=== PATIENT | male | born 1960 | race Caucasian/White ===

== ENCOUNTER 2016-06-09 05:52 | Observation (INO) | payer MEDICAID ==
[2016-06-09] MEDS ORDERED: ASPIRIN EC 325 MG TAB PO ONE ×2 (06:56→07:10)
[2016-06-09] MEDS ORDERED: DIAZEPAM 5 MG TAB ONE (06:56)
[2016-06-09] MEDS ORDERED: diphenhydrAMINE 25 MG CAP PO ONE ×2 (06:56→07:10)
[2016-06-09] MEDS ORDERED: FAMOTIDINE 20 MG TAB ONE (06:56)
[2016-06-09 07:06] LABS: % IMMATURE GRANULYOCYTES 0.3 % (0.0-1.1); ABSOLUTE IMMATURE GRANULOCYTES 0.03 10^3/uL (0.00-0.10); ADD DIFF? NO; ADD MORPH? NO; ADD SCAN? NO; ATYPICAL LYMPHOCYTE FLAG 0 (0-99); FRAGMENT RBC FLAG 0 (0-99); HEMATOCRIT 49.8 % (40.0-51.0); HEMOGLOBIN 17.7 g/dL (13.7-17.5); LEFT SHIFT FLG 0 (0-99); LIPEMIA HEMOLYSIS FLAG 90 (0-99); MEAN CELL HEMOGLOBIN 32.2 pg (27.9-34.1); MEAN CELL HEMOGLOBIN CONCENTR. 35.5 g/dL (32.4-36.7); MEAN CELL VOLUME 90.7 fL (81.5-99.8); MEAN PLATELET VOLUME 9.7 fL (8.7-11.7); PLATELET CLUMPS FLAG 0 (0-99); PLATELET COUNT 244 10^3/uL (150-400); RED BLOOD CELL COUNT 5.49 10^6/uL (4.40-6.38); RED CELL DISTRIBUTION WIDTH 12.2 % (11.5-15.2)
[2016-06-09] MEDS ORDERED: DIAZEPAM 5 MG TAB PO ONE (07:10)
[2016-06-09] MEDS ORDERED: FAMOTIDINE 20 MG TAB PO ONE (07:10)
[2016-06-09] MEDS ORDERED: NS 1,000 ML IV ONE (07:10)
[2016-06-09 07:13] LABS: ANION GAP 10 mEq/L (8-16); CALCIUM 9.7 mg/dL (8.5-10.4); CARBON DIOXIDE 24 mEq/l (22-31); CHLORIDE 107 mEq/L (97-110); CHOLESTEROL 274 mg/dL (140-220); CHOLESTEROL/HDL RATIO 5.96 RATIO (1.00-4.97); CREATININE 0.9 mg/dL (0.7-1.3); GLOMERULAR FILTRATION RATE > 60; GLUCOSE 90 mg/dL (70-100); HIGH DENSITY LIPOPROTEIN 46 mg/dL (40-65); INR 1.03 (0.83-1.16); LDL/HDL RATIO 4.11 RATIO (1.00-3.64); LOW DENSITY LIPOPROTEIN 189 mg/dL (80-100); MAGNESIUM 1.9 mg/dL (1.6-2.3); NON-HIGH DENSITY LIPOPROTEIN 228 mg/dL (90-129); POTASSIUM 4.3 mEq/L (3.5-5.2); PROTIME(PATIENT) 13.4 SEC (12.0-15.0); SODIUM 141 mEq/L (134-144); TRIGLYCERIDE 198 mg/dL (40-150); VERY LOW DENSITY LIPOPROTEINS 39 mg/dL (8-25)
[2016-06-09] MEDS ORDERED: LIDOCAINE 1% 30 ML SDV ONE (07:58)
[2016-06-09] MEDS ORDERED: HEPARIN 10,000 UNIT/10 ML MDV ONE (07:58)
[2016-06-09] MEDS ORDERED: fentaNYL 100 MCG/2 ML INJ ONE ×2 (07:58→08:54)
[2016-06-09] MEDS ORDERED: VERAPAMIL 5 MG/2 ML VIAL ONE (07:58)
[2016-06-09] MEDS ORDERED: MIDAZOLAM 2 MG/2 ML VIAL ONE ×3 (07:58→10:16)
[2016-06-09] MEDS ORDERED: IOPAMIDOL (ISOVUE 370) 100 ML BTL IV ONE ×4 (07:59→10:38)
[2016-06-09] MEDS ORDERED: BIVALIRUDIN 250 MG/5 ML VIAL IV ONE ×2 (08:43→10:28)
[2016-06-09] MEDS ORDERED: NITROGLYCERIN 1,500 MCG/15 ML VIAL MISC ONE ×2 (08:43→10:23)
[2016-06-09] MEDS ORDERED: ADENOSINE 90 MG/30 ML VIAL IV ONE (09:37)
[2016-06-09] MEDS ORDERED: ATROPINE SULFATE 1 MG/10 ML SYR ONE ×2 (10:01→13:10)
[2016-06-09] MEDS ORDERED: NITROGLYCERIN/D5W/250 ML BOTTLE IV ONE (10:07)
[2016-06-09] MEDS ORDERED: DOPamine/DEXTROSE/250 ML BAG IV ONE (10:11)
[2016-06-09] MEDS ORDERED: ONDANSETRON 4 MG/2 ML VIAL ONE (10:36)
[2016-06-09] MEDS ORDERED: CLOPIDOGREL BISULFATE 75 MG TAB ONE (10:39)
[2016-06-09] MEDS ORDERED: CLOPIDOGREL BISULFATE 75 MG TAB PO ONE (11:10)
[2016-06-09] MEDS ORDERED: ATROPINE SULFATE 1 MG/10 ML SYR IVP PRN (11:10)
[2016-06-09] MEDS ORDERED: LORazepam 2 MG/ML INJ IVP PRN (11:10)
[2016-06-09] MEDS ORDERED: OXYCODONE/APAP 5/325 TAB PO PRN (11:10)
[2016-06-09] MEDS ORDERED: NITROGLYCERIN 0.4 MG BTL SL PRN (11:10)
[2016-06-09] MEDS ORDERED: ONDANSETRON 4 MG/2 ML VIAL IVP PRN (11:10)
[2016-06-09] MEDS ORDERED: TEMAZEPAM 15 MG CAP PO PRN (11:10)
[2016-06-09] MEDS ORDERED: HYDROCODONE/APAP 5/325 TAB PO PRN (11:10)
--- NOTE | 2016-06-09 11:22 | CPEKG ---
Heart Rate: 62 RR Interval: 968 P-R Interval: 200 QRSD Interval: 100 QT Interval: 468 QTC Interval: 476 P [place]: 53 QRS [place]: 63 T Wave [place]: 33 EKG Severity - BORDERLINE ECG - EKG Impression: SINUS RHYTHM EKG Impression: BORDERLINE PROLONGED QT INTERVAL Electronically Signed By: Jordan Veliz 10-Jun-2016 08:44:45
--- NOTE | 2016-06-09 11:54 | CPIP ---
[f rep st] INVASIVE CARDIAC PROCEDURE DATE OF PROCEDURE: 06/09/2016 PROCEDURE: 1. Coronary angiography. 2. Fractional flow reserve of left anterior descending coronary artery. 3. Stenting of right coronary artery with Synergy drug-eluting stents. INDICATION: 1. Class III angina despite medical therapy with aspirin, lisinopril and nitroglycerin. 2. High risk abnormal nuclear stress test. ACCESS: Patient was prepped and draped in sterile fashion. 1% lidocaine was used to anesthetize th e right inguinal region. A 6-[place] introducer sheath was placed selectively into the right common femoral artery via modified Seldinger technique. CORONARY ANGIOGRAPHY: A 6-[place] JL4 was advanced to the left main coronary artery and images obtai salbador. The left main coronary artery trifurcated into an LAD, ramus, and circumflex coronary arteries . The left main coronary artery appeared normal. The left anterior descending coronary artery is d iffusely diseased. In the proximal segment, there was a discreet 40% to 50% stenosis present, and i n the mid vessel there is a discrete 40% stenosis present, and in the distal vessel there was a disc reet 50% to 70% stenosis present. The first diagonal artery is a moderate-sized vessel. The first diagonal artery appeared to have an ostial 50% to 70% stenosis present. The ramus coronary artery w as a large vessel. The ramus coronary artery had an ostia of 30% stenosis present. The circumflex coronary artery, and its complement of OM branches appeared normal. A 6-[place] JR4 was advanced to the right coronary artery and images obtained. The right coronary artery was diffusely diseased. I n the mid vessel there is a single discrete 75% stenosis present, and in the distal vessel there is a single discrete 99% stenosis present. LEFT VENTRICULOGRAPHY: Left ventriculography was not performed in an effort to spare contrast. FFR OF THE LEFT ANTERIOR DESCENDING CORONARY ARTERY: A 6-[place] JL 5.0 was advanced to the left elena n coronary artery and images obtained. Angiography confirmed the presence of intermediate to high-g rade disease throughout the left anterior descending coronary artery. The FFR wire was placed in th e distal vessel after the distal most lesion and FFR obtained after IV adenosine infusion. The FFR was 0.84 to 0.85 in the distal vessel indicating no flow limitation. PERCUTANEOUS CORONARY INTERVENTION OF THE RIGHT CORONARY ARTERY: A 6-[place] JL 3.5 was advanced to the right coronary artery and it was obtained. The angiography confirmed the presence of high-grade disease, involving the mid and distal vessel. A loose wire was placed in the distal vessel, and po sition verified by angiography. A 2.5 x 15 Emerge balloon was used to pre-dilate the distal lesion. Followup angiography demonstrated significant residual stenosis. A 2.5 x 24 Synergy drug-eluting stent was placed in the distal vessel and deployed. Followup angiography demonstrated TERE-3 flow. No residual stenosis. A 3.0 x 24 Synergy drug-eluting stent was then placed in the mid vessel and deployed. Followup angiography demonstrated TERE-3 flow. No residual stenosis. However, in the di stal portion of the vessel, prior to the previously placed stent, there appeared to be an intermedia qp-ik-kxoh-grade lesion. It was decided to place a 2.75 x 20 Synergy drug-eluting stent in the dist al vessel and telescoped into the distal-most stent and deployed. Followup angiography demonstrated TERE-3 flow. No residual stenosis. COMPLICATIONS: None. CONCLUSIONS: 1. 2-vessel coronary artery disease. 2. No evidence of flow limitation in the left anterior descending coronary artery by FFR. 3. Status post successful percutaneous coronary intervention of the right coronary artery using Syn ergy drug-eluting stents. /[id number]/MODL
--- NOTE | 2016-06-09 13:20 | CPEKG ---
Heart Rate: 60 RR Interval: 1000 P-R Interval: 172 QRSD Interval: 100 QT Interval: 460 QTC Interval: 460 P [place]: 33 QRS [place]: 47 T Wave [place]: 35 EKG Severity - NORMAL ECG - EKG Impression: SINUS RHYTHM Electronically Signed By: Jordan Veliz 10-Jun-2016 08:44:41
[2016-06-10 05:11] LABS: % IMMATURE GRANULYOCYTES 0.5 % (0.0-1.1); ABSOLUTE IMMATURE GRANULOCYTES 0.06 10^3/uL (0.00-0.10); ADD DIFF? NO; ADD MORPH? NO; ADD SCAN? NO; ATYPICAL LYMPHOCYTE FLAG 0 (0-99); FRAGMENT RBC FLAG 0 (0-99); HEMATOCRIT 45.4 % (40.0-51.0); HEMOGLOBIN 15.5 g/dL (13.7-17.5); LEFT SHIFT FLG 0 (0-99); LIPEMIA HEMOLYSIS FLAG 90 (0-99); MEAN CELL HEMOGLOBIN CONCENTR. 34.1 g/dL (32.4-36.7); MEAN CELL VOLUME 93.6 fL (81.5-99.8); MEAN PLATELET VOLUME 10.1 fL (8.7-11.7); PLATELET CLUMPS FLAG 0 (0-99); PLATELET COUNT 225 10^3/uL (150-400); RED BLOOD CELL COUNT 4.85 10^6/uL (4.40-6.38); RED CELL DISTRIBUTION WIDTH 12.5 % (11.5-15.2)
[2016-06-10 05:19] LABS: ANION GAP 7 mEq/L (8-16); ASPARTATE AMINOTRANSFERASE 25 IU/L (17-59); CALCIUM 9.4 mg/dL (8.5-10.4); CARBON DIOXIDE 26 mEq/l (22-31); CHLORIDE 106 mEq/L (97-110); CREATININE 1.1 mg/dL (0.7-1.3); GLOMERULAR FILTRATION RATE > 60; GLUCOSE 90 mg/dL (70-100); LACTATE DEHYDROGENASE 439 IU/L (313-618); SODIUM 139 mEq/L (134-144)
[2016-06-10] MEDS ORDERED: CLOPIDOGREL BISULFATE 75 MG TAB PO SCH (09:00)
[2016-06-10] MEDS ORDERED: LISINOPRIL/HCTZ 20/12.5MG 1 EA TAB PO SCH (09:00)
[2016-06-10] MEDS ORDERED: CHOLECALCIFEROL VIT D3 1,000 UNITS TAB PO SCH (09:00)
[2016-06-10] MEDS ORDERED: ASPIRIN EC 325 MG TAB PO SCH (09:00)
--- NOTE | 2016-06-10 09:30 | CPEKG ---
Heart Rate: 65 RR Interval: 923 P-R Interval: 172 QRSD Interval: 96 QT Interval: 392 QTC Interval: 408 P [place]: 53 QRS [place]: 43 T Wave [place]: 30 EKG Severity - NORMAL ECG - EKG Impression: SINUS RHYTHM Electronically Signed By: Felix Armstrong 10-Jun-2016 12:17:58
[2016-06-10 11:58] VITALS: BP 170/95; PULSE 60; RESP 20; TEMP 97.6; O2SAT 98
--- NOTE | 2016-06-10 12:48 | GDS ---
[f rep st] DISCHARGE SUMMARY DISCHARGE DIAGNOSES: 1. Coronary artery disease. The patient presented with symptoms of class 2-3 angina. He had a nuc lear stress test performed, demonstrating a large area of inferior ischemia. He was taken to the [facility] catheterization laboratory on 06/09/2016 and found to have 2-vessel coronary artery disease in volving his left anterior descending coronary artery and right coronary artery. FFR was performed o n the left anterior descending coronary artery, indicating no evidence of flow limitation. The zelda ent was subsequently treated with percutaneous coronary intervention of the right coronary artery us ing Synergy drug-eluting stents. The patient will be continued on aspirin, Brilinta, Coreg, lisinop ril, and rosuvastatin for medical management. 2. Hypertension. The patient has a long history of hypertension. His blood pressure has been prev iously well controlled on lisinopril and hydrochlorothiazide. These medications will be continued. In addition, Coreg will be added for improved blood pressure control and cardiovascular risk reduct ion. 3. Hyperlipidemia. The patient has a history of hyperlipidemia. He is unable to tolerate Lipitor secondary to LFT abnormalities. 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 The patient will be started on rosuvastatin 20 mg daily. He will need FLP and LFTs in a 3-month period of time to evaluate therapy. SUMMARY OF PRESENTATION AND COURSE: The patient is a 55-year-old gentleman who presented in the out patient setting with symptoms of class 2-3 angina. He had a nuclear stress test performed for risk stratification, demonstrating a large area of inferior ischemia. He was admitted to the hospital on 06/09/2015 for cardiac catheterization. Coronary angiography was notable for 2-vessel coronary art adrian disease. The left anterior descending coronary artery was evaluated with FFR. The FFR indicate d no flow limitation. The patient was ultimately treated with percutaneous coronary intervention of his right coronary artery. Postprocedural course was uncomplicated. At the time of discharge, he was ambulating without difficulty. He had no symptoms of angina or congestive heart failure, no sig nificant arrhythmias on telemetry monitoring, and no significant groin complications. PHYSICAL EXAMINATION: GENERAL: At the time of discharge, patient is resting comfortably in bed. V ITALS: Temperature afebrile. Pulse is 63. Blood pressure 131/80. Respiratory rate 18, SaO2 92% o n room air. LUNGS: Clear to auscultation bilaterally. CARDIOVASCULAR: Regular rate and rhythm, S 1, S2. No murmurs, rubs, or gallops appreciated. ABDOMEN: Soft, nontender. Normoactive bowel julita nds. EXTREMITIES: No clubbing, cyanosis, or edema. 2+ dorsalis pedis pulse and posterior tibial p ulse on the right. No evidence of hematoma or ecchymosis. LABORATORY: At the time of discharge, sodium 139, potassium 5.0, chloride 106, CO2 26, BUN 17, crea tinine 1.1. White blood cell count 12.55, hemoglobin 15.5, hematocrit 45.4, platelet count 225. DISCHARGE MEDICATIONS: Please see medicine reconciliation form. ARRANGEMENTS FOR FOLLOWUP CARE: 1. Patient should follow up with Sofiya Delvalle or Dr. Panda at [facility] in approximately 1-2 weeks' period of time. 2. Patient was instructed to return to the ER for recurrent symptoms of angina or groin complicatio ns as outlined at the time of discharge. /[id number]/MODL
[2016-06-10] MEDS ORDERED: CARVEDILOL 3.125 MG TAB PO SCH (18:00)
[2016-06-11] MEDS ORDERED: ASPIRIN 81 MG CHEWABLE TAB PO SCH (09:00)
[2016-06-11] MEDS ORDERED: ROSUVASTATIN CALCIUM 20 MG TAB PO SCH (09:00)
[2016-06-11] MEDS ORDERED: TICAGRELOR 90 MG TAB PO SCH (09:00)
[2016-06-11] MEDS ORDERED: FLUoxetine 20 MG CAP PO SCH (09:00)
== END 2016-06-10 15:06 | disposition home or self-care (01) ==
LOC: FCATH 05:52 → F2W 10:00
PROVIDERS: ADMIT Internal Medicine Cardiovascular Disease; ATTEND Internal Medicine Cardiovascular Disease
PROC: B2151ZZ Fluoroscopy of Left Heart using Low Osmolar Contrast (ICD-10-PCS; principal; 2016-06-09)
PROC: 027036Z Dilation of Coronary Artery, One Artery with Three Drug-eluting Intraluminal Devices, Percutaneous Approach (ICD-10-PCS; principal; 2016-06-09)
PROC: B240ZZ3 Ultrasonography of Single Coronary Artery, Intravascular (ICD-10-PCS; principal; 2016-06-09)
PROC: 4A023N7 Measurement of Cardiac Sampling and Pressure, Left Heart, Percutaneous Approach (ICD-10-PCS; principal; 2016-06-09)
PROC: B2111ZZ Fluoroscopy of Multiple Coronary Arteries using Low Osmolar Contrast (ICD-10-PCS; principal; 2016-06-09)
DX: I25.119 Atherosclerotic heart disease of native coronary artery with unspecified angina pectoris (principal); I10 Essential (primary) hypertension; E78.9 Disorder of lipoprotein metabolism, unspecified
CPT/HCPCS: 92928; 93005; 93454; 93571; C1725; C1769; C1887; C1874; C9600; J0153; J0461; J0583; J1265; J1644; J2250; J2405; J3010; Q9967

== ENCOUNTER 2016-06-15 10:04 | Emergency (ER) | payer MEDICAID ==
[2016-06-15 10:17] VITALS: TEMP 98.4
--- NOTE | 2016-06-15 10:31 | EDPHY ---
H & P Time Seen by Provider: 06/15/16 10:25 HPI/ROS: Chief complaint. Post heart catheterization groin swelling HPI. Patient is a 55-year-old male had a heart catheterization on June 09 with stents placed. Over the last 2 days he has had increased pain swelling to the right groin and now is quite tender to the touch. It hurts when he bears down to go to the bathroom. No chest pain or fever. Pain swelling and bruising goes into the right testicle as well as the shaft of the penis ROS Constitutional. no fever/chills, no weakness Eyes. no problems with vision ENT. no sore throat, no nasal drainage Cardiovascular. no chest pain Respiratory. no shortness of breath, no cough Abdominal. no abdominal pain, no nausea/vomiting, no diarrhea . no problems urinating MS. Pain, swelling, bruising to right groin Skin. no rash Lymph. no swollen glands Neuro. no headache, no dizziness, no difficulty walking or with speech Past Medical/Surgical History: Coronary artery disease, hypertension, dyslipidemia Social History: , nonsmoker, no alcohol Smoking Status: Former smoker Physical Exam: General Appearance: Alert pleasant well-developed male mild distress vital signs are stable Eyes: Pupils equal and round no pallor or injection. ENT, Mouth: Mucous membranes are moist. Respiratory: There are no retractions, lungs are clear to auscultation. Cardiovascular: Regular rate and rhythm. Gastrointestinal: Abdomen is soft and nontender, no masses, bowel sounds normal. Neurological: Awake and alert, sensory and motor exams grossly normal. Skin: Warm and dry, no rashes. Musculoskeletal: Neck is supple nontender. Extremities bruising and swelling with tenderness to the right groin area overlying the femoral artery. There is bruising to the shaft of the penis and into the right scrotal area. No evidence for infection however Psychiatric: Patient is oriented X 3, there is no agitation. Constitutional: Initial Vital Signs Temperature (C) 36.9 C 06/15/16 10:14 Heart Rate 81 06/15/16 10:14 Respiratory Rate 18 06/15/16 10:14 Blood Pressure 115/79 06/15/16 10:14 O2 Sat (%) 96 06/15/16 10:14 O2 Delivery Mode Room Air Allergies/Adverse Reactions: No Known Allergies Allergy (Unverified 06/09/16 07:09) Home Medications: Medication Instructions Recorded Aspirin EC [Aspirin EC 81 mg (*)] 81 mg PO DAILY 06/09/16 Cholecalciferol Vit D3 [Vitamin D3 2,000 units PO DAILY 06/09/16 (*)] FLUoxetine [Prozac 20 MG (*)] 20 mg PO DAILY 06/09/16 Lisinopril/Hctz 20/12.5MG 1 ea PO DAILY 06/09/16 [Zestoretic/Prinzide 20/12.5MG (*)] Aspirin [Aspirin 81mg (*)] 81 mg PO DAILY #0 tab.chew 06/10/16 Carvedilol [Coreg (*)] 3.125 mg PO BIDMEAL #60 tab 06/10/16 FLUoxetine [Prozac 20 MG (*)] 20 mg PO DAILY #0 cap 06/10/16 Rosuvastatin Calcium [Crestor 20mg 20 mg PO DAILY #30 tab 06/10/16 (*)] Ticagrelor [Brilinta] 90 mg PO BID #60 tab 06/10/16 Medical Decision Making - Diagnostics Imaging: Ultrasound interpreted by me and discussed with Dr. Rashid shows no evidence of pseudoaneurysm. His interpretation is adenopathy verses thrombosed pseudoaneurysm and likely this is adenopathy. Could represent hematoma ED Course/Re-evaluation: Re-evaluation at 12:10 p.m.. Patient is stable. The patient, his , and I discussed imaging study results, treatment plan, criteria for return and importance of follow-up and further evaluation. They expressed understanding and agreement. I consulted and discussed case with Cardiology. They recommend warm compresses and continuing going groin precautions of no lifting over 10 lb. The patient already has an appointment with them next Wednesday and the patient will be encouraged to keep this. Departure - Departure Disposition: Home, Routine, Self-Care Clinical Impression: Post heart catheterization groin hematom Condition: Good Instructions: Hematoma (ED) Additional Instructions: I discussed your care with the [facility] shift lead. They recommend warm compresses 3 times daily. Easy activity and no lifting over 10 lb. Continue groin per caution instructions. You have an appointment with them next Wednesday and they encouraged to keep the appointment. Return sooner for worsening pain, swelling, or fever. Referrals: Moo Spear MD [Primary Care Provider] - As per Instructions
[2016-06-15 12:24] VITALS: BP 134/87; PULSE 63; RESP 16; O2SAT 94
== END 2016-06-15 12:24 | disposition home or self-care (01) ==
DX: I97.610 Postprocedural hemorrhage of a circulatory system organ or structure following a cardiac catheterization (principal); I10 Essential (primary) hypertension; I24.9 Acute ischemic heart disease, unspecified; Z87.891 Personal history of nicotine dependence; Z79.82 Long term (current) use of aspirin

== ENCOUNTER → 2016-06-22 | Outpatient (CLI) | payer MEDICAID | LOC: FIMAGING 15:35 | PROVIDERS: ATTEND Nurse Practitioner Adult Health | DX: R19.03 Right lower quadrant abdominal swelling, mass and lump (principal); Z98.890 Other specified postprocedural states ==

== ENCOUNTER 2017-06-13 13:16 | Emergency (ER) | payer MEDICAID ==
[2017-06-13 13:22] VITALS: TEMP 98.1
--- NOTE | 2017-06-13 13:28 | CPEKG ---
Heart Rate: 55 RR Interval: 1091 P-R Interval: 176 QRSD Interval: 98 QT Interval: 436 QTC Interval: 417 P [place]: 76 QRS [place]: 73 T Wave [place]: 65 EKG Severity - NORMAL ECG - EKG Impression: SINUS RHYTHM Electronically Signed By: Lino Abad 13-Jun-2017 20:31:59
[2017-06-13] MEDS ORDERED: ASPIRIN 81 MG CHEWABLE TAB PO ONE (13:45)
[2017-06-13 13:50] LABS: PLATELET COUNT 261 10^3/uL (150-400)
[2017-06-13] MEDS: NITROGLYCERIN 0.4 MG BTL SL PRN ×3 (13:53→14:08)
--- NOTE | 2017-06-13 14:54 | EDPHY ---
H & P Stated Complaint: stopped brillinta last week cp/htn for 3 days Time Seen by Provider: 06/13/17 13:27 HPI/ROS: CHIEF COMPLAINT: High blood pressure HISTORY OF PRESENT ILLNESS: This is a 56-year-old male with history of coronary artery disease status post stenting, hypertension, and hyperlipidemia. 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 When he was in the office his blood pressure was 100/60. He had a febrile illness last week on , Wednesday, and Wednesday with fever, sore throat, and occasional coughing fits. He rested in bed during this time. Yesterday, the 3rd day of his illness, he felt better except that he was having left-sided chest pain. He has had left upper chest pain constantly for the past 2 days. He has had some associated dizziness. There has been no radiation of the pain. He is not short of breath. He otherwise feels fine. Today he checked his blood pressure and it was elevated. He consulted his physician and was advised to come to the emergency department. He is here primarily out of concern about his blood pressure, not because he is experiencing chest pain. REVIEW OF SYSTEMS: A ten point review of systems was performed and is negative with the exception of the items mentioned in the HPI. Past medical history: 1. Coronary artery disease status post stenting 2. Hypertension 3. Hyperlipidemia Past surgical history: Multiple orthopedic surgeries Social history: He lives with his in [place]. He does not use tobacco products. He is self-employed. General Appearance: Alert. Vital signs reviewed. Blood pressure at triage was 145/105. Eyes: Pupils equal and round, no conjunctival injection, no discharge. Anicteric. ENT, Mouth: Mucous membranes are moist, no oropharyngeal erythema or edema. Neck: No lymphadenopathy, supple. Respiratory: Lungs are clear to auscultation; no wheezes, rales, or rhonchi. Cardiovascular: Regular rate and rhythm; no murmur, rub, or gallop. Gastrointestinal: Abdomen is soft and nontender, no masses or organomegaly, bowel sounds normal. Skin: Warm and dry, no rashes on exposed skin, normal color. Back: Nontender to palpation over the thoracolumbar spine. No CVAT. Extremities: No lower extremity edema, no calf tenderness or swelling. Neurological: Alert and oriented. Moving all four extremities easily and equally. SAÚL. EOMI. Facial expression symmetric. Tongue midline. Psychiatric: Normal affect. - Personal History Current Tetanus/Diphtheria Vaccine: Yes - Medical/Surgical History Hx Asthma: No Hx Chronic Respiratory Disease: No Hx Diabetes: No Hx Cardiac Disease: Yes Hx Renal Disease: No Hx Cirrhosis: No Hx Alcoholism: No Hx HIV/AIDS: No Hx Splenectomy or Spleen Trauma: No Other PMH: 50 FX; BACK AND PLATES NECK; HYPERLIPIDEMIA,cardiac cath procedure - Social History Smoking Status: Former smoker Constitutional: Initial Vital Signs Temperature (C) 36.7 C 06/13/17 13:20 Heart Rate 60 06/13/17 13:20 Respiratory Rate 17 06/13/17 13:20 Blood Pressure 145/105 H 06/13/17 13:20 O2 Sat (%) 98 06/13/17 13:20 O2 Delivery Mode Room Air Allergies/Adverse Reactions: No Known Allergies Allergy (Verified 06/13/17 13:19) Home Medications: Medication Instructions Recorded Aspirin [Aspirin 81mg (*)] 81 mg PO DAILY 06/14/17 Carvedilol [Coreg (*)] 3.125 mg PO BIDMEAL 06/14/17 Cholecalciferol Vit D3 [Vitamin D3 2,000 units PO DAILY 06/14/17 2000 units tab (OTC)] FLUoxetine [Prozac 20 MG (*)] 20 mg PO DAILY 06/14/17 Lisinopril/Hctz 20/12.5MG 1 ea PO DAILY 06/14/17 [Zestoretic/Prinzide 20/12.5MG (*)] Nitroglycerin [Nitrostat 0.4 mg 0.4 mg SL Q5M PRN 06/14/17 (*)] Rosuvastatin Calcium [Crestor 10mg 5 mg PO HS 06/14/17 (RX)] Medical Decision Making - Diagnostics EKG Interpretation: 12 lead EKG is interpreted in Trace master View by emergency department physician. Sinus rhythm with a rate of 55. No acute ischemic changes. There is some baseline artifact noted on the tracing. ED Course/Re-evaluation: Patient received 3 sublingual nitroglycerin. He had a good response in terms of blood pressure but no significant change in his chest pain. He was re- evaluated at 2:35 p.m.. CBC, chemistries, troponin reviewed in all normal with the exception of CO2 of 20. Chest x-ray shows no acute pulmonary disease. He continued to experience left upper chest pain during his stay in the emergency department. His blood pressure improved and was 129/81 at discharge. However, I was concerned about the persistent chest pain. Hospitalization was offered for serial troponins and further evaluation as needed. Given that he has had this pain for the past 2 days it seems unlikely that his pain represents an acute coronary syndrome with a normal troponin and normal EKG. However he does have a history of coronary artery disease, with hypertension and hyperlipidemia. His pain is not pleuritic, he has not tachycardic or tachypneic and I do not think that he has a pulmonary embolus. Using the Wells score for PE he is low risk. I do not recommend further testing for PE at this time. He denied discussed hospitalization at some length. He understands that the cause of his chest pain has not been discovered. He is willing to sign a form stating that he is leaving against medical advice. He he understands that he can return at any time. He is advised to follow up with his primary care provider and his dry yard worker. Differential Diagnosis: Chest pain including but not limited to myocardial ischemia, pulmonary embolus, chest wall pain, pleural inflammation and pulmonary infectious causes. - Data Points Laboratory Results: Laboratory Results 06/13/17 13:30 06/13/17 13:30 Medications Given: Discontinued Medications Aspirin (Aspirin) 243 mg PO EDNOW ONE Stop: 06/13/17 13:46 Last Admin: 06/13/17 13:53 Dose: 243 mg Nitroglycerin (Nitrostat) 0.4 mg SL Q5M PRN PRN Reason: Chest Pain Last Admin: 06/13/17 14:08 Dose: 0.4 mg Departure - Departure Disposition: Against Medical Advice Clinical Impression: Chest pain Qualifiers: Chest pain type: other chest pain Qualified Code(s): R07.89 - Other chest pain ; R07.8 - Other chest pain Hypertension Qualifiers: Hypertension type: essential hypertension Qualified Code(s): I10 - Essential ( primary) hypertension Condition: Good Instructions: Chest Pain (ED), Hypertension (ED) Additional Instructions: Continue your prescribed medications. I recommend that you follow up with Dr. Panda. You should call the office tomorrow to arrange follow-up appointment. Make sure the office staff knows that you were seen and evaluated in the emergency department for high blood pressure and chest pain. Referrals: Moo Spear MD [Primary Care Provider] - As per Instructions Jordan Panda MD [Medical Doctor] - As per Instructions
[2017-06-13 16:22] VITALS: BP 129/81; PULSE 56; RESP 15; O2SAT 97
== END 2017-06-13 16:25 | disposition left against medical advice (07) ==
DX: I10 Essential (primary) hypertension (principal); R07.89 Other chest pain; I25.10 Atherosclerotic heart disease of native coronary artery without angina pectoris; Z79.82 Long term (current) use of aspirin; Z87.891 Personal history of nicotine dependence; Z95.5 Presence of coronary angioplasty implant and graft

== ENCOUNTER 2017-06-14 14:44 | Inpatient (IN) | payer MEDICAID ==
--- NOTE | 2017-06-14 15:09 | CPEKG ---
Heart Rate: 57 RR Interval: 1053 P-R Interval: 176 QRSD Interval: 100 QT Interval: 428 QTC Interval: 417 P [place]: 60 QRS [place]: 76 T Wave [place]: 60 EKG Severity - NORMAL ECG - EKG Impression: SINUS RHYTHM Electronically Signed By: Akash Piedra 16-Jun-2017 07:06:02
--- NOTE | 2017-06-14 15:36 | EDPHY ---
H & P Stated Complaint: CP htn x 5 days--sent from [facility] for card cath Time Seen by Provider: 06/14/17 15:34 - Personal History Current Tetanus/Diphtheria Vaccine: Unsure Current Tetanus Diphtheria and Acellular Pertussis (TDAP): Unsure - Medical/Surgical History Hx Asthma: No Hx Chronic Respiratory Disease: No Hx Diabetes: No Hx Cardiac Disease: Yes Hx Renal Disease: No Hx Cirrhosis: No Hx Alcoholism: No Hx HIV/AIDS: No Hx Splenectomy or Spleen Trauma: No Other PMH: BACK AND PLATES NECK; HYPERLIPIDEMIA,cardiac cath procedure 06/12 - Social History Smoking Status: Former smoker Constitutional: Initial Vital Signs Temperature (C) 37.0 C 06/14/17 14:47 Heart Rate 70 06/14/17 14:47 Respiratory Rate 16 06/14/17 14:47 Blood Pressure 151/89 H 06/14/17 14:47 O2 Sat (%) 98 06/14/17 14:47 O2 Delivery Mode Room Air Allergies/Adverse Reactions: No Known Allergies Allergy (Verified 06/13/17 13:19) Home Medications: Medication Instructions Recorded Aspirin [Aspirin 81mg (*)] 81 mg PO DAILY 06/14/17 Carvedilol [Coreg (*)] 3.125 mg PO BIDMEAL 06/14/17 Cholecalciferol Vit D3 [Vitamin D3 2,000 units PO DAILY 06/14/17 2000 units tab (OTC)] FLUoxetine [Prozac 20 MG (*)] 20 mg PO DAILY 06/14/17 Lisinopril/Hctz 20/12.5MG 1 ea PO DAILY 06/14/17 [Zestoretic/Prinzide 20/12.5MG (*)] Nitroglycerin [Nitrostat 0.4 mg 0.4 mg SL Q5M PRN 06/14/17 (*)] Rosuvastatin Calcium [Crestor 10mg 5 mg PO HS 06/14/17 (RX)] Medical Decision Making - Diagnostics Imaging: I viewed and interpreted images myself ED Course/Re-evaluation: CHIEF COMPLAINT: Chest pain, high blood pressure, dizziness HISTORY OF PRESENT ILLNESS: The patient is a 56 y/o male with a history of 3 stents (May 2016), CAD, and hypertension, complaining of chest pain and dizziness. Last week he stopped taking Brilinta as advised by his party plan sales host/hostess. Yesterday, his party plan sales host/hostess advised him to present to the ED for ongoing chest pain. During his stay in the ED he was administered 3 nitroglycerin and 324mg PO Aspirin, which improved his symptoms. He then left AMA and was advised to see his party plan sales host/hostess. Today he had chest pain and shortness of breath while shoveling his drive way today. Today he saw Dr. Miguelito Martinez, party plan sales host/hostess, and they sent him to the ED today to be admitted for a cardiac angiogram. He is currently having a dull chest pain. No abdominal pain, urinary or bowel complaints, fever, numbness, paresthesias. REVIEW OF SYSTEMS: A 10 point review of systems was performed and is negative with the exception of the elements mentioned in the history of present illness. PHYSICAL EXAM: HR, BP, O2 Sat, RR. Temp noted General Appearance: Alert, well hydrated, appropriate, and non-toxic appearing. Head: Atraumatic without scalp tenderness or obvious injury Eyes: Pupils equal, round, reactive to light and accommodation, EOMI, no trauma , no injection. Ears: Clear bilaterally, no perforation, normal landmarks Nose: Atraumatic, no rhinorrhea, clear. Throat: Mucus membranes moist. Neck: Supple, nontender, no lymphadenopathy. Respiratory: No retractions, no distress, no wheezes, and no accessory muscle use. Lungs are clear to auscultation bilaterally. Cardiovascular: Regular rate and rhythm, no murmurs, rubs, or gallops. Good capillary refill all extremities. Gastrointestinal: Abdomen is soft, nontender, non-distended, no masses, no rebound, no guarding, no peritoneal signs. Musculoskeletal: Normal active ROM of all extremities, atraumatic. Neurological: Alert, appropriate, and interactive. Non-focal neuro. Skin: No rashes, good turgor, no nodules on palpation. Past medical history: Hyperlipidemia, CAD, hypertension Past surgical history: 3 stents (May 2016), back and neck plates Family history: Denies Social history: Lives in [place], DIAGNOSTICS/PROCEDURES/CRITICAL CARE TIME: The 12 lead EKG was interpreted by myself as sinus rhythm with a rate of 57. See hard copy and/or "tracemaster" electronic copy for interpretation. DIFFERENTIAL DIAGNOSIS: The differential diagnosis for the patient's chest pain included but was not limited to myocardial ischemia, pulmonary embolus, chest wall pain, pleural inflammation, and pulmonary infectious causes. MEDICAL DECISION MAKING: The patient is a 56 y/o male with a history of 3 stents (May 2016), CAD, and hypertension presenting with ongoing and exertional chest pain for several days. He left this ED AMA yesterday and was advised to see his party plan sales host/hostess. When he saw his party plan sales host/hostess today, they advised he go to the ED to be admitted for a chest angiogram. Labs and EKG ordered. 324mg PO Aspirin and IV Nitroglycerin administered. 1508: EKG interpreted by myself as sinus rhythm with a rate of 57. 1556: Consulted with BAKARI Richards, party plan sales host/hostess, regarding this patient. He will call the interventionalist for this patient. 1600: Consulted with Dr. Garcia, cardiac education spec, regarding this patient. 1607: Consulted with Dr. Esperanza Garcia, party plan sales host/hostess, regarding this patient. 1639: Consulted with Dr. Garcia, she accepts admission of this patient and will take him to the irrigation laborer. - Data Points Laboratory Results: Laboratory Results 06/14/17 15:11 06/14/17 15:11 06/14/17 06/14/17 06/14/17 15:11 15:11 15:11 WBC 8.99 10^3/uL 10^3/uL (3.80-9.50) RBC 4.89 10^6/uL 10^6/uL (4.40-6.38) Hgb 16.4 g/dL g/dL (13.7-17.5) Hct 46.3 % % (40.0-51.0) MCV 94.7 fL fL (81.5-99.8) MCH 33.5 pg pg (27.9-34.1) MCHC 35.4 g/dL g/dL (32.4-36.7) RDW 12.1 % % (11.5-15.2) Plt Count 259 10^3/uL 10^3/uL (150-400) MPV 9.4 fL fL (8.7-11.7) Neut % (Auto) 63.2 % % (39.3-74.2) Lymph % (Auto) 27.3 % % (15.0-45.0) [place] % (Auto) 5.8 % % (4.5-13.0) Eos % (Auto) 2.7 % % (0.6-7.6) Baso % (Auto) 0.7 % % (0.3-1.7) Nucleat RBC Rel Count 0.0 % % (0.0-0.2) Absolute Neuts (auto) 5.69 10^3/uL 10^3/uL (1.70-6.50) Absolute Lymphs (auto) 2.45 10^3/uL 10^3/uL (1.00-3.00) Absolute Monos (auto) 0.52 10^3/uL 10^3/uL (0.30-0.80) Absolute Eos (auto) 0.24 10^3/uL 10^3/uL (0.03-0.40) Absolute Basos (auto) 0.06 10^3/uL 10^3/uL (0.02-0.10) Absolute Nucleated RBC 0.00 10^3/uL 10^3/uL (0-0.01) Immature Gran % 0.3 % % (0.0-1.1) Immature Gran # 0.03 10^3/uL 10^3/uL (0.00-0.10) PT Pending INR Pending APTT Pending Sodium 137 mEq/L mEq/L (135-145) Potassium 4.3 mEq/L mEq/L (3.5-5.2) Chloride 104 mEq/L mEq/L (97-110) Carbon Dioxide 19 mEq/l L mEq/l (22-31) Anion Gap 14 mEq/L mEq/L (8-16) BUN 15 mg/dL mg/dL (7-23) Creatinine 0.9 mg/dL mg/dL (0.7-1.3) Estimated GFR > 60 Glucose 88 mg/dL mg/dL (70-100) Calcium 9.6 mg/dL mg/dL (8.5-10.4) Magnesium Troponin I < 0.012 ng/mL ng/mL (0.000-0.034) NT-Pro-B Natriuret Pep 53 pg/mL pg/mL (0-125) Triglycerides Cholesterol Cholesterol Risk Factr LDL Cholesterol, Calc LDL Risk Factor VLDL Cholesterol Non-HDL Cholesterol HDL Cholesterol LDL/HDL Ratio Cholesterol/HDL Ratio 06/14/17 15:00 WBC RBC Hgb Hct MCV MCH MCHC RDW Plt Count MPV Neut % (Auto) Lymph % (Auto) [place] % (Auto) Eos % (Auto) Baso % (Auto) Nucleat RBC Rel Count Absolute Neuts (auto) Absolute Lymphs (auto) Absolute Monos (auto) Absolute Eos (auto) Absolute Basos (auto) Absolute Nucleated RBC Immature Gran % Immature Gran # PT INR APTT Sodium Potassium Chloride Carbon Dioxide Anion Gap BUN Creatinine Estimated GFR Glucose Calcium Magnesium Pending Troponin I NT-Pro-B Natriuret Pep Triglycerides Pending Cholesterol Pending Cholesterol Risk Factr Pending LDL Cholesterol, Calc Pending LDL Risk Factor Pending VLDL Cholesterol Pending Non-HDL Cholesterol Pending HDL Cholesterol Pending LDL/HDL Ratio Pending Cholesterol/HDL Ratio Pending Medications Given: Discontinued Medications Aspirin (Aspirin) 324 mg PO EDNOW ONE Stop: 06/14/17 16:10 Last Admin: 06/14/17 16:18 Dose: 324 mg Nitroglycerin/Dextrose (Nitroglycerin 200 Mcg/Ml (Premix)) 250 mls @ 0 mls/hr IV CONT ONE; Titrate PRN Reason: Protocol Stop: 06/14/17 16:10 Last Admin: 06/14/17 16:18 Dose: 250 mls Departure - Departure Disposition: To OP Cath/Surgery Clinical Impression: Chest pain Qualifiers: Chest pain type: other chest pain Qualified Code(s): R07.89 - Other chest pain Condition: Fair Referrals: Moo Spear MD [Primary Care Provider] - As per Instructions Report Scribed for: Lino Abad Report Scribed by: Waleska Morales Date of Report: 06/14/17 Time of Report: 15:36
[2017-06-14 15:54] LABS: PLATELET COUNT 259 10^3/uL (150-400)
[2017-06-14] MEDS ORDERED: ASPIRIN 81 MG CHEWABLE TAB PO ONE (16:09)
[2017-06-14] MEDS ORDERED: NITROGLYCERIN/DEXTROSE 250 ML IV ONE (16:09)
[2017-06-14] MEDS ORDERED: MIDAZOLAM 2 MG/2 ML VIAL ONE (16:42)
[2017-06-14] MEDS ORDERED: LIDOCAINE 1% 300 MG/30 ML SDV ONE (16:42)
[2017-06-14] MEDS ORDERED: fentaNYL 100 MCG/2 ML INJ ONE (16:42)
[2017-06-14] MEDS ORDERED: ONDANSETRON 4 MG/2 ML VIAL ONE (16:43)
[2017-06-14] MEDS ORDERED: IOPAMIDOL (ISOVUE-370) 150 ML BTL IV ONE (16:43)
[2017-06-14] MEDS ORDERED: TEMAZEPAM 15 MG CAP PO PRN ×3 (17:02→18:12)
[2017-06-14] MEDS ORDERED: ASPIRIN EC 325 MG TAB PO ONE ×2 (17:02)
[2017-06-14] MEDS ORDERED: ACETAMINOPHEN 325 MG TAB PO PRN ×2 (17:02→17:18)
[2017-06-14] MEDS ORDERED: NITROGLYCERIN 0.4 MG BTL SL PRN ×4 (17:02→18:12)
[2017-06-14] MEDS ORDERED: diphenhydrAMINE 25 MG CAP PO ONE ×2 (17:02)
[2017-06-14] MEDS ORDERED: FAMOTIDINE 20 MG TAB PO ONE ×2 (17:02)
[2017-06-14] MEDS ORDERED: DIAZEPAM 5 MG TAB PO ONE ×2 (17:02)
[2017-06-14] MEDS ORDERED: NS 1,000 ML IV SCH ×2 (17:15→17:30)
[2017-06-14 17:16] LABS: INR 1.07 (0.83-1.16); PROTIME(PATIENT) 14.1 SEC (12.0-15.0)
--- NOTE | 2017-06-14 17:19 | PDHPUP ---
History & Physical Update H&P update statement: This history and physical update is based on an assessment of the patient which was completed after admission or registration (within 24 hours), but prior to the surgery/procedure. H&P update: H&P reviewed & patient examined, no change in patient's condition since H&P completed (please see Dr. Simental' office note from today)
--- NOTE | 2017-06-14 17:19 | PDPROPOC ---
Sedation Plan of Care Sedation Plan of Care: vital signs stable, mental status noted, patient educated of risks, benefits, alternatives, patient can tolerate sedation ASA Classification: ASA 2 Planned drugs: fentanyl, midazolam Mallampati Score: Class 2 Mallampati Reference Image: Patient passed 3-3-2 rule?: Yes
[2017-06-14] MEDS ORDERED: PRASUGREL HCL 10 MG TAB ONE (17:36)
[2017-06-14] MEDS ORDERED: NITROGLYCERIN 1,500 MCG/15 ML VIAL MISC ONE (17:36)
[2017-06-14] MEDS ORDERED: BIVALIRUDIN 250 MG/5 ML VIAL IV ONE (17:36)
--- NOTE | 2017-06-14 17:48 | PDDXCAT ---
Diagnostic Cath Note - . Date: 06/14/17 Tape Deck Installer: Radha Indication: CCC Class III and IV angina on medical treatment - Procedure Access: right groin Procedure: left heart catheterization, coronary angiography, left ventriculogram - Materials Left Heart Cath size: 6F Left Heart Cath materials: standard multipack (JL4, JR4, pigtail) - Findings-Left Heart Catheterization LM: normal and bifurcates into LAD and LCx LAD: mid 60% lesion; distal 60% lesion; D1 with ostial 60% lesion. Similar to 2017 angiogram LCX: codominant. Large OM. Mild luminal irregularities RCA: mid and distal stents with 70% in stent restenosis. Codominant EDP: 11 LVEF: 65 %. normal wall motion - Findings-Right Heart Catheterization AO: 96/64 Complications: none Estimated blood loss: <50ml Assessment: moderate LAD disease, similar to 2017; significant ISRS of RCA stents Plan: Interventional consult with Dr. Garcia Patient Problems: Problems Problem Status Onset Chest pain Acute
[2017-06-14] MEDS ORDERED: LORazepam 2 MG/ML INJ IVP PRN (18:12)
[2017-06-14] MEDS ORDERED: ONDANSETRON 4 MG/2 ML VIAL IVP PRN (18:12)
[2017-06-14] MEDS ORDERED: OXYCODONE/APAP 5/325 TAB PO PRN (18:12)
[2017-06-14] MEDS ORDERED: ATROPINE SULFATE 1 MG/10 ML SYR IVP PRN (18:12)
--- NOTE | 2017-06-14 18:28 | CPIP ---
[f rep st] INVASIVE CARDIAC PROCEDURE DATE OF PROCEDURE: 06/14/2017 INDICATION FOR PROCEDURE: Unstable angina. PROCEDURE: 1. Right coronary selective angiography. 2. Percutaneous intervention: Distal right coronary artery for severe in-stent restenosis utilizing Xience 2.5 x 15 mm Xience drug-eluting stent and a Xience 3.0 x 15 mm drug-eluting stent for severe in-stent restenosis. 3. Right groin closure with 6-[place] Angio-Seal. HISTORY: Briefly, this is a 56-year-old male with history of prior PCI. The patient has been having unstable anginal-like symptoms for the last 48 hours, came to the emergency room twice. The patient has no EKG changes currently, but has been having chest pain, relieved with the nitroglycerin drip. The patient underwent diagnostic cardiac catheterization by Dr. Esperanza Garcia. Please refer to Dr. Bladimir miller's note for full delineation of underlying coronary anatomy. Briefly, the patient was found to have high-grade in-stent restenosis of his distal RCA stent, as well as mid RCA stent. Given these findi ngs, the patient was consented for PCI. DESCRIPTION OF PROCEDURE: Utilizing the same sheath in the right common femoral artery, patient was started on an Angiomax bolus and drip, as well as given 60 of Effient. Utilizing a JR4 6-[place]isw[place] cath eter, right coronary artery was selectively engaged. A Choice PT wire was placed down the RPDA. We proceeded with primary stenting of these vessels with a 2.5 x 15 mm drug-eluting stent Xience in the distal RCA. The Xience was chosen secondary to the fact the patient had prior Synergy stents placed in these areas. This was deployed at 16 atmospheres across the distal RCA into the RPDA. The RPL, w hich did have an ostial pinch prior to deployment of the stents, still remained patent with an ostial pinch. We then turned our attention to the mid RCA. A Xience 3.0 x 15 mm drug-eluting stent was de ployed successfully at 16 atmospheres. Post deployment, there was excellent TERE-3 flow to the vesse l. There was no evidence of any edge dissection, perforation or any other complication. Wire was re moved. The catheter was removed over an 0.035 wire. Right groin was closed using 6-[place] Angio-Sea l. The patient tolerated the procedure well with no complications. IMPRESSION: Successful percutaneous intervention of high-grade in-stent restenosis of the right devin nary artery with 2 separate Xience drug-eluting stents. PLAN: The patient will be admitted overnight. If clinically stable, anticipate discharge in the nex t 24 hours with a new prescription for Effient 10 mg p.o. daily. /[id number]/MODL
--- NOTE | 2017-06-14 18:40 | CPEKG ---
Heart Rate: 62 RR Interval: 968 P-R Interval: 196 QRSD Interval: 96 QT Interval: 464 QTC Interval: 472 P [place]: 63 QRS [place]: 75 T Wave [place]: 62 EKG Severity - NORMAL ECG - EKG Impression: SINUS RHYTHM Electronically Signed By: Akash Piedra 14-Jun-2017 20:36:19
[2017-06-14] MEDS: ROSUVASTATIN CALCIUM 10 MG TAB PO SCH (22:31)
[2017-06-15 05:08] LABS: PLATELET COUNT 220 10^3/uL (150-400)
[2017-06-15] MEDS: FLUoxetine 20 MG CAP PO SCH (07:56)
[2017-06-15] MEDS: ASPIRIN 81 MG CHEWABLE TAB PO SCH (07:57)
[2017-06-15] MEDS: CHOLECALCIFEROL VIT D3 2,000 UNITS TAB/CAP PO SCH (07:58)
[2017-06-15] MEDS: PRASUGREL HCL 10 MG TAB PO SCH (07:58)
[2017-06-15] MEDS ORDERED: CARVEDILOL 3.125 MG TAB PO SCH (08:00)
--- NOTE | 2017-06-15 08:51 | CPEKG ---
Heart Rate: 67 RR Interval: 896 P-R Interval: 172 QRSD Interval: 96 QT Interval: 412 QTC Interval: 435 P [place]: 64 QRS [place]: 72 T Wave [place]: 58 EKG Severity - NORMAL ECG - EKG Impression: SINUS RHYTHM Electronically Signed By: Akash Piedra 15-Jun-2017 19:15:54
[2017-06-15] MEDS ORDERED: LISINOPRIL/HCTZ 20/12.5MG 1 EA TAB PO SCH (09:00)
--- NOTE | 2017-06-15 10:27 | ASMTCMCOM ---
CM Note CM Note Notes: 06/15/2017 Case Management Note Reviewed chart. Pt admitted for CAD with cath planned. There are no case management d/c needs identified d/t pt age, marital status, employment status and activity levels prior to admission. There are no PT or OT evals ordered at this time. Case Management d/c poc: anticipating independent with follow up as directed. Case Management available if needs change. Date Signed: 06/15/2017 10:26 AM Electronically Signed By:Siena Burciaga RN
[2017-06-15] MEDS: amLODIPine BESYLATE 5 MG TAB PO SCH (12:29)
--- NOTE | 2017-06-15 14:16 | CPEKG ---
Heart Rate: 59 RR Interval: 1017 P-R Interval: 168 QRSD Interval: 98 QT Interval: 428 QTC Interval: 424 P [place]: 60 QRS [place]: 63 T Wave [place]: 53 EKG Severity - NORMAL ECG - EKG Impression: SINUS RHYTHM Electronically Signed By: Akash Piedra 15-Jun-2017 19:15:41
[2017-06-15] MEDS ORDERED: KETOROLAC 30 MG/1 ML SDV IVP ONE (14:46)
[2017-06-15] MEDS ORDERED: CARVEDILOL 3.125 MG TAB PO ONE (14:49)
--- NOTE | 2017-06-15 15:00 | PDCARPN ---
Cardiology Progress Note Chief Complaint: cp/dizziness Assessment/Plan: Assessment: 56-y/o M PMH PCI Synergy stents to RCA 06/09/16 after unstable angina symptoms starting the month prior; htn; dyslipidemia. Since with the onset of viral URI symptoms, he has noted a chest pain and dizziness. BP has been elevated. Was in the ED on 06/13/17 and sent from clinic 06/14/17 for the same. #. cp: found to have ISR of RCA stents 70% s/p PCI Xience stents now back on DAPT (had stopped Brilinta) ongoing cp which may be subendocardial strain given htn cycle enzymes ECG without overt ischemia echo without WMA will treat for possible pleurisy versus musculoskeletal discomfort with Toradol x 1 dose check CRP and ESR #. dizziness: unclear etiology but again possibly viral given recent illness check orthostatics #. htn: BP is quite elevated added Amlodipine and home Lisinopril/HCTZ and Carvedilol doses increased #. DVT ppx: will plan for early ambulation Plan: Due to ongoing pain, dizziness, pt is not stable for discharge. Will admit as inpt. 06/15/17 14:49 Subjective: Ongoing 2-3/10 L sided cp. Previous cp that preceded stents was more linear and across both R and L chest. CP was worsened when bending down to tie his shoes but not worsened with inspiration. Dizziness feels like he is "stoned." No positional component. Time Spent With Patient: >35 minutes Objective: Vital Signs (8 Hrs) Temp Pulse Resp BP Pulse Ox 06/15/17 12:33 97.5 F 69 14 171/101 H 98 06/15/17 11:46 164/109 H 06/15/17 09:59 144/106 H 06/15/17 07:48 97.7 F 64 14 146/104 H 98 Intake/Output (24 Hrs) 06/14/17 06/15/17 06/16/17 05:59 05:59 05:59 Intake Total 1000 200 Output Total 300 Balance 700 200 Intake: Oral (ml) 400 200 IV Intake (ml) 600 Output: Urine (ml) 300 Urinal 300 Other: Weight 79.379 kg Intake Quantity Yes Sufficient Number of Voids Urinal 2 Result Diagrams: 06/15/17 04:30 02/20/18 04:30 Cardiac Labs: Cardiac Lab Results (72 Hrs) 06/15/17 12:28 Troponin I 0.207 H EKG: SR Telemetry: SR Echocardiogram: reviewed with Dr. Garcia- armando and no WMA - Physical Exam Constitutional: healthy appearing, no apparent distress Eyes: PERRL, anicteric sclera Ears, Nose, Mouth, Throat: moist mucous membranes Cardiovascular: regular rate and rhythm, no murmurs Respiratory: clear to auscultate bilat Gastrointestinal: normoactive bowel sounds, no tenderness Skin: no rashes, no abrasions Musculoskeletal: no muscular tenderness Neurologic: AAOx3 Psychiatric: cooperative, interactive ICD10 Worksheet Patient Problems: Problems Problem Status Onset Chest pain Acute Chest pain Acute
--- NOTE | 2017-06-15 15:31 | ECHO ---
[email or web address] [address] [address] Main: [phone] Fax: Transthoracic Echocardiogram Name: ISMAEL JENNINGS MR#: [id number] Study Date: 06/15/2017 Study Time: 12:54 PM Date of : 1960 Age: 56 year(s) Height: 182.9 cm (72 in.) Weight: 79.38 kg (175 lb.) BSA: 2.01 m2 Gender: Male Examination: Echo Indication: Dizziness/status post RCA stents Image Quality: Contrast: Requested by: Susie Wolfe BP: 167 mmHg/110 mmHg Heart Rate: Rhythm: Indication: Dizziness/status post RCA stents Procedure Staff Process Description Writer: Loree Churchill [facility] Reading Physician: Esperanza Garcia Requesting Provider: Susie Wolfe Conclusions: Normal size left ventricle. No LV hypertrophy. Normal global systolic LV function. The ejection fraction is estimated to be 60-65 %. No regional wall motion abnormality. Normal diastolic LV function. Normal size right ventricle. Mild mitral valve regurgitation is present. Measurements: Chambers Valvular Assessment AV/MV Valvular Assessment TV/PV Normal Normal Normal Name Value Range Name Value Range Name Value Range Ao Xuan (2D): 3.7 cm (1.4 cm-2.6 AV meanP mmHg ( - ) cm) MV E Vmax: 0.79 m/s ( - ) IVSd (2D): 0.6 cm (0.6 cm-1.1 MV A Vmax: 0.50 m/s ( - ) cm) MV E/A: 1.58 ( - ) LVDd (2D): 5.1 cm (4.2 cm-5.9 cm) LVDs (2D): 2.9 cm (2.1 cm-4 cm) LVPWd (2D): 0.7 cm (0.6 cm-1 cm) LVEF (MOD4): 74 % (>=55 %) EF Range: 60-65 % Continued Measurements: Chambers Valvular Assessment AV/MV Name Value Name Value Patient: ISMAEL JENNINGS Study Date: 06/15/2017 Page 1 of 2 12:54 PM LADs: 3.2 cm MV E/E' Septal: 8.30 LADs Lon.4 cm MV E/E' Lateral: 7.20 LA Area: 12.7 cm2 Additional Vessels Name Value Ao Ascendin.8 cm Findings: Left Ventricle: Normal size left ventricle. No LV hypertrophy. Normal global systolic LV function. The ejection fraction is estimated to be 60-65 %. No regional wall motion abnormality. Normal diastolic LV function. Right Ventricle: Normal size right ventricle. Left Atrium: The left atrium is normal in size. Right Atrium: The right atrium is normal in size. Mitral Valve: The mitral valve is normal in appearance and function. Mild mitral valve regurgitation is present. Aortic Valve: The aortic valve is normal in appearance and function. Tricuspid Valve: The tricuspid valve is normal in appearance and function. Trivial tricuspid valve regurgitation. Pulmonic Valve: The pulmonic valve is normal in appearance and function. Pulmonary valve not well visualized. Aorta: The aorta is normal. Pericardium: No pericardial effusion. (No Signature Object) Patient: ISMAEL JENNINGS Study Date: 06/15/2017 Page 2 of 2 12:54 PM [id number]
[2017-06-15] MEDS: CARVEDILOL 6.25 MG TAB PO SCH (17:51)
[2017-06-15] MEDS: LISINOPRIL/HCTZ 20/12.5MG 1 EA TAB PO SCH (20:43)
[2017-06-15] MEDS: ROSUVASTATIN CALCIUM 10 MG TAB PO SCH (20:43)
[2017-06-16] MEDS: CHOLECALCIFEROL VIT D3 2,000 UNITS TAB/CAP PO SCH (07:51)
[2017-06-16] MEDS: CARVEDILOL 6.25 MG TAB PO SCH (07:52)
[2017-06-16] MEDS: FLUoxetine 20 MG CAP PO SCH (07:52)
[2017-06-16] MEDS: ASPIRIN 81 MG CHEWABLE TAB PO SCH (07:52)
[2017-06-16] MEDS: LISINOPRIL/HCTZ 20/12.5MG 1 EA TAB PO SCH (07:52)
[2017-06-16] MEDS: amLODIPine BESYLATE 5 MG TAB PO SCH (07:52)
[2017-06-16] MEDS: PRASUGREL HCL 10 MG TAB PO SCH (07:52)
[2017-06-16 08:26] VITALS: O2SAT 98
[2017-06-16] MEDS ORDERED: IOPAMIDOL (ISOVUE 370) 100 ML BTL IV ONE (10:38)
[2017-06-16 12:54] VITALS: BP 139/87; PULSE 66; RESP 22; TEMP 97.9
--- NOTE | 2017-06-16 15:35 | GDS ---
[f rep st] DISCHARGE SUMMARY DISCHARGE DIAGNOSES: 1. Chest pain with in-stent restenosis of right coronary artery stent, status post repeat percutaneo us transluminal coronary angioplasty and stenting with Xience stents. 2. Ongoing chest pain that has now resolved. 3. Dizziness. 4. Hypertension. 5. New diagnosis of deep vein thrombosis involving the common femoral vein. 6. Dyslipidemia. PROCEDURES: 1. 06/14/2017, cardiac catheterization which demonstrates normal left main, LAD with moderate diseas e involving the mid and distal and diagonal 1 with all 60% lesions, unchanged from previous 2017 debbie ogram. Codominant circumflex with a large OM with mild luminal irregularities. RCA with mid and dis jaxon stents with 70% in-stent restenosis. This vessel is codominant. LVEDP of 11 and LVEF of 65. 2. 06/14/2017, PTCA and stenting for in-stent restenosis, status post percutaneous intervention of t he high-grade in-stent restenosis of the RCA using 2 separate Xience stents. 3. 06/15/2017, echocardiogram which shows EF of 60% to 65% with normal global LV systolic function. No regional wall abnormalities. Normal diastolic LV function. Normal right ventricular size. Mild mitral valve regurgitation. 4. 06/16/2017, chest CTA which shows no visible evidence of pulmonary embolus. 5. 06/16/2017, bilateral Doppler which shows nonocclusive thrombus of the right common femoral vein. Waterman cyst versus hematoma less likely in the right popliteal fossa. BRIEF HISTORY: Please see dictated H and P by Dr. Shaun Simental from our office for complete det ails. In brief, the patient is a 56-year-old male, with a known history of CAD, status post PTCA and stenting in 2017. A week ago, he had gotten off his Brilinta. A few days prior to arrival, he had onset of URI symptoms and had developed a cough. With this, he was noting some chest pains. This wo uld persist despite the cough resolving. He came to the emergency department for this, as well as el evated blood pressures at home. He ruled out via enzymes and presented to clinic on Wednesday with kaykay lar complaints. He was therefore taken to the cardiac catheterization laboratory at that time. HOSPITAL COURSE BY PROBLEM: 1. Chest pain. He was found to have in-stent restenosis of RCA stents. A different stent was used with a different drug platform from his previous stents. Previously, he had Synergy stents. Now, he has Xience stents implanted. He will be started on Effient for a total of 1 year. His chest pain w as thought to be possibly related to some subendocardial ischemia based on his hypertension. Postpro cedural cardiac enzyme was elevated at 0.3. EKG was without any ischemic changes. ESR and CRP were within normal limits. A CTA of his chest was negative for PE. A DVT, however, was positive for clot in his right common femoral vein. 2. DVT. As above, he will be started on 3 months of Eliquis. This will put him on triple therapy w ith Eliquis, Effient, and aspirin. 3. Dizziness. This has resolved prior to discharge. 4. Hypertension. Blood pressure was quite elevated through his hospital stay. His home lisinopril with hydrochlorothiazide was titrated to 20/12.5 p.o. twice daily from once daily. His carvedilol wa s increased to 6.25 p.o. twice daily from 3.125 twice daily. Amlodipine was added to his medical reg imen. On discharge, his blood pressure was 139/70. 5. Dyslipidemia. His LDL is controlled on 5 mg of Crestor. His triglycerides were quite elevated. We discussed the possibility of adding fish oil to his medical regimen and he is in agreement with t his plan. PHYSICAL EXAM: VITAL SIGNS: On day of discharge, BP 139/87, heart rate 66, respirations 22, O2 satu ration 98% on room air, temperature 97.9 degrees Fahrenheit. GENERAL: He is a pleasant man in no ap parent distress. HEENT: Head normocephalic, atraumatic. Eyes are PERRL without scleral icterus. H EART: Regular rate and rhythm. LUNGS: Clear. GENITOURINARY: Right groin site without any bruit, edema, or ecchymosis present. LABORATORY DATA: Troponin 0.2, followed by 0.284, followed by 0.112. Triglycerides 376, total steve sterol 169, LDL 49, HDL 45. CBC with WBC 9.33, hemoglobin 14.9, hematocrit 42.8, platelet count 220. ESR 8, CRP 5.2. BMP with sodium 140, potassium 4.4, chloride 105, CO2 24, BUN 14, creatinine 0.9, g lucose 94. RESULTS PENDING: None. DIET: Cardiac diet reviewed with patient. ACTIVITY RESTRICTIONS: Groin precautions were reviewed. DISCHARGE MEDICATIONS: He will be continued on his rosuvastatin, vitamin D3, aspirin, Prozac. His l isinopril has been increased to 20/12.5 p.o. twice daily. His carvedilol has been increased to 6.25 p.o. twice daily. He is being started on Effient 10 mg p.o. daily. He will be started on Eliquis 5 mg two tabs p.o. twice daily for 7 days, followed by 1 tab p.o. twice daily for a total duration of 3 months. DISCHARGE INSTRUCTIONS: 1. Follow up in clinic as scheduled. 2. Groin precautions. 3. The patient warned of the dangers of triple anticoagulation therapy. Please note that greater than 30 minutes was spent on discharge and coordination of care. /[id number]/MODL
== END 2017-06-16 15:39 | disposition home or self-care (01) | DRG 229 ==
LOC: FCATH 17:18 → F2W 18:02 → OBSVTOIN 18:12 → F2W 19:38
PROVIDERS: ADMIT Internal Medicine Cardiovascular Disease; ATTEND Internal Medicine Cardiovascular Disease
DX: T82.855A Stenosis of coronary artery stent, initial encounter (principal); I25.10 Atherosclerotic heart disease of native coronary artery without angina pectoris; I10 Essential (primary) hypertension; I82.411 Acute embolism and thrombosis of right femoral vein; E78.5 Hyperlipidemia, unspecified
CPT/HCPCS: C1760; C1769; C1874; C1887; C9600; J0583; J1200; J1644; J1885; J2250; J2405; J3010; Q9967